=== PATIENT | female | born 1990 | race African-American/Black ===

== ENCOUNTER 2018-01-15 19:27 | Emergency (ER) | payer OTHER ==
[2018-01-15 19:41] VITALS: TEMP 98.4; BMI 21.9
--- NOTE | 2018-01-15 19:41 | PDOC ---
Rapid Medical Evaluation Time Seen by Provider: 01/15/18 19:39 Medical Evaluation: Allergies Allergy/AdvReac Type Severity Reaction Status Date / Time peanut Allergy Verified 09/08/15 10:45 01/15/18 19:40 Pt c/o: sent from woman to woman, u/s showed rt ectopic, sent fro methotrexate. no pain no bleeding , no hx of ectopic pt on brief exam vss, no abd pain Pt ordered for: labs and ultrasound pt to proceed to the ED Discharge Disposition - Diagnosis Ectopic - Referrals - Patient Instructions - Post Discharge Activity
[2018-01-15 20:24] LABS: BASO % 0.7 % (0-2.0); EOS % 1.6 % (0-4.5); HEMATOCRIT 42.4 % (32.4-45.2); HEMOGLOBIN 14.5 GM/dL (10.7-15.3); LYMPH % 25.4 % (8-40); MCH 29.3 pg (25.7-33.7); MCHC 34.2 g/dl (32.0-36.0); MEAN CELL VOLUME 85.5 fl (80-96); MEAN PLT VOLUME 8.7 fl (7.5-11.1); MONO % 4.5 % (3.8-10.2); NEUT % 67.8 % (42.8-82.8); PLATELET COUNT 242 K/MM3 (134-434); RBC 4.95 M/mm3 (3.60-5.2); RDW 12.3 % (11.6-15.6); WHITE BLOOD COUNT 7.9 K/mm3 (4.0-10.0)
[2018-01-15 21:08] LABS: ALBUMIN 4.2 g/dl (3.4-5.0); ALK PHOS 49 U/L (45-117); ANION GAP 11 MMOL/L (8-16); BILIRUBIN,TOTAL 0.5 mg/dL (0.2-1); BLOOD UREA NITROGEN 7 mg/dL (7-18); CHLORIDE 101 mmol/L (98-107); CO2 26 mmol/L (21-32); CREATININE 0.6 mg/dL (0.55-1.3); GLUCOSE,RANDOM 71 mg/dL (74-106); POTASSIUM 4.4 mmol/L (3.5-5.1); SGOT/AST 23 U/L (15-37); SGPT/ALT 18 U/L (13-61); SODIUM 138 mmol/L (136-145); TOT PROT 8.4 g/dl (6.4-8.2)
--- NOTE | 2018-01-15 21:24 | PDOC ---
History of Present Illness - General [place] [facility] [place] Complaint: PCP SENT/ECTOPIC Time Seen by Provider: 01/15/18 19:39 History Source: Patient Exam Limitations: No Limitations - History of Present Illness Initial Comments: 27 y/o F (1 ), LNMP 11/15/17, hx of asthma presented as she was going for routine visit to her REGISTRY NURSE today and states she had an ultrasound done which showed concerns for R ectopic and was sent to ED for further evaluation. Patient mentions having occasional nausea and emesis from her . Otherwise denies fever, chills, sob, cp, abd pain, vaginal bleeding, unusual vaginal discharge, urinary complaints. Had 1 in past. Otherwise, denies hx of ectopic pregnancies. 01/15/18 21:18 Past History - Past Medical History Allergies/Adverse Reactions: Allergies Allergy/AdvReac Type Severity Reaction Status Date / Time peanut Allergy Verified 01/15/18 19:42 Home Medications: Ambulatory Orders NK [No Known Home Medication] 09/08/15 Asthma: Yes Cancer: No Cardiac Disorders: No COPD: No Diabetes: No HTN: No Seizures: No Thyroid Disease: No - Suicide/Smoking/Psychosocial Hx Smoking Status: No Smoking History: Never smoked Have you smoked in the past 12 months: No Number of Cigarettes Smoked Daily: 0 Hx Alcohol Use: No Drug/Substance Use Hx: No Substance Use Type: None Hx Substance Use Treatment: No Review of Systems - Review of Systems Comments:: See HPI 01/15/18 21:24 Constitutional: No: Chills, Fever Respiratory: No: Shortness of Breath Cardiac (ROS): No: Chest Pain ABD/GI: Yes: See HPI, Nausea, Vomiting. No: Diarrhea, Abdominal cramping : Yes: See HPI. No: Dysuria, Discharge *Physical Exam - Vital Signs Last Vital Signs Temp Pulse Resp BP Pulse Ox 98.4 F 90 18 144/70 100 01/15/18 19:38 01/15/18 19:38 01/15/18 19:38 01/15/18 19:38 01/15/18 19:38 - Physical Exam General Appearance: No: Apparent Distress Respiratory/Chest: positive: Lungs Clear, Normal Breath Sounds. negative: Respiratory Distress Cardiovascular: positive: Regular Rhythm, Regular Rate, S1, S2. negative: Murmur Female Pelvic Exam: positive: normal external exam, cervical os closed, normal adnexa. negative: CMT, discharge, lesions, adnexal tenderness, vaginal bleeding Gastrointestinal/Abdominal: positive: Normal Bowel Sounds, Soft. negative: Tender, Distended, Guarding, Rebound, Tenderness Extremity: positive: Normal Inspection, Pedal Edema, Calf Tenderness Neurologic: positive: Fully Oriented, Alert, Normal Mood/Affect ED Treatment Course - LABORATORY CBC & Chemistry Diagram: 01/15/18 20:15 01/15/18 20:15 - ADDITIONAL ORDERS Additional order review: Laboratory Results 01/15/18 01/15/18 20:15 20:15 Sodium 138 Potassium 4.4 Chloride 101 Carbon Dioxide 26 Anion Gap 11 BUN 7 Creatinine 0.6 Creat Clearance w eGFR > 60 Random Glucose 71 L Calcium 9.0 Total Bilirubin 0.5 AST 23 ALT 18 Alkaline Phosphatase 49 Total Protein 8.4 H Albumin 4.2 Beta HCG, Quant 5484.2 Anti-A Titer Cancelled Blood Type Cancelled Antibody Screen Cancelled 01/15/18 20:15 RBC 4.95 MCV 85.5 MCHC 34.2 RDW 12.3 MPV 8.7 Neutrophils % 67.8 Lymphocytes % 25.4 D Monocytes % 4.5 Eosinophils % 1.6 Basophils % 0.7 Medical Decision Making - Medical Decision Making 27 y/o F currently 8 weeks sent from REGISTRY NURSE for possible ectopic . Patient currently stable with no vaginal bleeding. PE was unremarkable. Will obtain CBC, CMP, BhCg, UA and T&S 01/15/18 21:26 Results of labs and imaging reviewed Ultrasound shows IUP at 5 weeks and 5 days with 1.7 cm R ovarian cyst; no evidence of ectopic noted Level of Bhcg corresponds with patient's UA negative Patient provided copy of ultrasound report; states she will arrange for follow- up with an REGISTRY NURSE physician. 01/15/18 21:44 *DC/Admit/Observation/Transfer Diagnosis at time of Disposition: - Discharge Dispostion Disposition: HOME Condition at time of disposition: Good Decision to Admit order: No - Referrals Referrals: Wiliam John MD [Primary Care Provider] - - Patient Instructions Additional Instructions: Thank you for choosing [facility]. It was a pleasure taking care of you. You had an ultrasound done confirming normal with incidental 1.7 cm cyst in right ovary. Please be sure to continue follow-up with an REGISTRY NURSE doctor for further care of your . Return to the Emergency Department if your symptoms worsen or persist, you have fever, shortness of breath, chest pain, severe abdominal pain, vomiting, heavy vaginal bleeding or other concerning symptoms. - Post Discharge Activity
[2018-01-15 21:36] LABS: URINE APPEARANCE CLEAR; URINE BILIRUBIN NEGATIVE (<2.0 mg/dL); URINE COLOR LTYELLOW; URINE GLUCOSE (UA) NEGATIVE (NEGATIVE); URINE KETONE 2+ (NEGATIVE); URINE LEUK ESTERASE NEGATIVE (NEGATIVE); URINE NITRITE NEGATIVE (NEGATIVE); URINE PROTEIN NEGATIVE (NEGATIVE); URINE UROBILINOGEN NEGATIVE mg/dL (0.2-1.0)
[2018-01-15 21:59] VITALS: BP 138/78; PULSE 86
--- NOTE | 2018-01-15 22:32 | PDOC ---
*Physical Exam - Vital Signs Last Vital Signs Temp Pulse Resp BP Pulse Ox 98.4 F 86 18 138/78 100 01/15/18 19:38 01/15/18 21:58 01/15/18 21:58 01/15/18 21:58 01/15/18 21:58 ED Treatment Course - LABORATORY CBC & Chemistry Diagram: 01/15/18 20:15 01/15/18 20:15 - ADDITIONAL ORDERS Additional order review: Laboratory Results 01/15/18 01/15/18 01/15/18 20:19 20:15 20:15 Sodium 138 Potassium 4.4 Chloride 101 Carbon Dioxide 26 Anion Gap 11 BUN 7 Creatinine 0.6 Creat Clearance w eGFR > 60 Random Glucose 71 L Calcium 9.0 Total Bilirubin 0.5 AST 23 ALT 18 Alkaline Phosphatase 49 Total Protein 8.4 H Albumin 4.2 Beta HCG, Quant 5484.2 Urine Color Ltyellow Urine Appearance Clear Urine pH 6.0 Ur Specific [place] 1.015 Urine Protein Negative Urine Glucose (UA) Negative Urine Ketones 2+ H Urine Blood Negative Urine Nitrite Negative Urine Bilirubin Negative Urine Urobilinogen Negative Ur Leukocyte Esterase Negative Anti-A Titer Cancelled Blood Type Cancelled Antibody Screen Cancelled 01/15/18 20:15 RBC 4.95 MCV 85.5 MCHC 34.2 RDW 12.3 MPV 8.7 Neutrophils % 67.8 Lymphocytes % 25.4 D Monocytes % 4.5 Eosinophils % 1.6 Basophils % 0.7 Medical Decision Making - Medical Decision Making 01/15/18 22:31 Sent to ED by primary provider for concern of ectopic . Outside bedside ultrasound showed undifferentiated structure by R ovary Patient is vitally stable, no vaginal bleeding Official US shows +IUP and R sided cystic structure Patient states that she will follow up with her own providers *DC/Admit/Observation/Transfer Diagnosis at time of Disposition: - Discharge Dispostion Disposition: HOME Condition at time of disposition: Good - Referrals Referrals: Wiliam John MD [Primary Care Provider] - - Patient Instructions Additional Instructions: Thank you for choosing [facility]. It was a pleasure taking care of you. You had an ultrasound done confirming normal with incidental 1.7 cm cyst in right ovary. Please be sure to continue follow-up with an [facility] doctor for further care of your . Return to the Emergency Department if your symptoms worsen or persist, you have fever, shortness of breath, chest pain, severe abdominal pain, vomiting, heavy vaginal bleeding or other concerning symptoms. - Post Discharge Activity
== END 2018-01-15 21:59 | disposition home or self-care (01) ==
LOC: JER 19:27
DX: O26.891 Other specified pregnancy related conditions, first trimester (principal); O34.81 Maternal care for other abnormalities of pelvic organs, first trimester; N83.291 Other ovarian cyst, right side; Z3A.01 Less than 8 weeks gestation of pregnancy
CPT/HCPCS: 36415; 76830-TC; 80053; 81003; 84702; 85025; 87086; 99282-25

== ENCOUNTER 2019-05-18 09:01 | Emergency (ER) | payer OTHER ==
[2019-05-18 10:06] VITALS: BP 119/64; PULSE 101; TEMP 98.8; BMI 22.4
--- NOTE | 2019-05-18 11:44 | PDOC ---
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 Patient reports no significant medical or surgical history. Denies travel or sick contact. Took tylenol before arriving to ed 05/18/19 11:39 Is this a multiple visit Asthma Patient?: No Timing/Duration: reports: just prior to arrival Severity: reports: mild Possible Cause: Yes: no prior episodes Modifying Factors: improves with: other (acetaminophen) Associated Symptoms: reports: fever/chills. denies: headache Past History - Travel Traveled outside of the country in the last 30 days: No Close contact w/someone who was outside of country & ill: No - Past Medical History Allergies/Adverse Reactions: Allergies Allergy/AdvReac Type Severity Reaction Status Date / Time peanut Allergy Verified 05/18/19 09:06 Home Medications: Ambulatory Orders Ibuprofen 600 mg PO TID #21 tablet 05/18/19 Oseltamivir Phosphate [Tamiflu -] 75 mg PO BID #10 capsule 05/18/19 Asthma: Yes Cancer: No Cardiac Disorders: No COPD: No Diabetes: No HTN: No Seizures: No Thyroid Disease: No - Psycho Social/Smoking Cessation Hx Smoking Status: No Smoking History: Never smoked Have you smoked in the past 12 months: No Number of Cigarettes Smoked Daily: 0 Information on smoking cessation initiated: No Hx Alcohol Use: No Drug/Substance Use Hx: No Substance Use Type: None Hx Substance Use Treatment: No Respiratory Specific PMHX - Complaint Specific PMHX Hx Airway Support: No Hx Intubation: No Hx Asthma: No Hx Bronchitis: No Hx Pneumonia: No Hx TB (Tuberculosis): No Review of Systems - Review of Systems Able to Perform ROS?: Yes Is the patient limited Setswana proficient: No Constitutional: Yes: Loss of Appetite, Malaise. No: Chills, Fever HEENTM: Yes: Nose Congestion. No: Throat Pain Respiratory: No: Cough, Shortness of Breath, SOB at Rest, Stridor, Wheezing Cardiac (ROS): No: Chest Pain, Lightheadedness, Palpitations ABD/GI: No: Constipated, Diarrhea, Poor Appetite, Poor Fluid Intake, Vomiting, Indigestion : No: Burning, Hematuria, Incontinence Musculoskeletal: Yes: Muscle Pain. No: Back Pain, Gout, Joint Pain, Neck Pain Integumentary: No: Dryness, Erythema Neurological: No: Headache, Numbness, Paresthesia *Physical Exam - Vital Signs Last Vital Signs Temp Pulse Resp BP Pulse Ox 98.8 F 101 H 16 119/64 98 05/18/19 10:03 05/18/19 10:05/18/19 10:05/18/19 10:05/18/19 10:03 - Physical Exam General Appearance: Yes: Nourished, Appropriately Dressed HEENT: positive: Pharynx Normal, Tonsillar Erythema, Nasal Congestion, Rhinorrhea Neck: positive: Supple. 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 Patient reports no significant medical or surgical history. Denies travel or sick contact. flu-like symptoms flu swab +influenza A rx:ibuprofen tamiflu Discharge - Discharge Information Problems reviewed: Yes Clinical Impression/Diagnosis: Influenza A Condition: Good Disposition: HOME - Admission No - Additional Discharge Information Prescriptions: Ibuprofen 600 mg PO TID #21 tablet Oseltamivir Phosphate [Tamiflu -] 75 mg PO BID #10 capsule - Follow up/Referral Referrals: Wiliam John MD [Primary Care Provider] - (Call for follow up appointment ) - Patient Discharge Instructions Patient Printed Discharge Instructions: Influenza Additional Instructions: Drink plenty fluids rest Avoid contact with children, elderly and female Return for worsening symptoms - Post Discharge Activity Work/Back to School Note: Back to Work
== END 2019-05-18 11:49 | disposition home or self-care (01) ==
LOC: JERFT 09:01
DX: J09.X2 Influenza due to identified novel influenza A virus with other respiratory manifestations (principal); Z87.09 Personal history of other diseases of the respiratory system
CPT/HCPCS: 87804; 99282-25